=== PATIENT | female | born 1965 | race Caucasian/White ===

== ENCOUNTER 2017-05-15 11:19 | Emergency (ER) | payer SELFPAY, BC | END 2017-05-15 22:20 | disposition left against medical advice (07) | LOC: E/R 11:19 | DX: Z53.21 Procedure and treatment not carried out due to patient leaving prior to being seen by health care provider (principal) | CPT/HCPCS: 93005 ==

== ENCOUNTER 2017-09-28 12:49 | Emergency (ER) | payer SELFPAY ==
[2017-09-28] MEDS: SOD CHLORIDE 0.9% 2,100 ML IV (14:08)
[2017-09-28] MEDS: ONDANSETRON 4 MG INJ IV (14:09)
[2017-09-28] MEDS: KETOROLAC 15 MG INJ IV (14:10)
[2017-09-28 14:12] LABS: ADD UMIC YES; UR ASCORBIC ACID NEGATIVE (NEGATIVE); UR BACTERIA MANY /HPF (NONE SEEN); UR BILIRUBIN (Dip) NEGATIVE (NEGATIVE); UR BLOOD (Dip) 2+ mg/dL (NEGATIVE); UR CLARITY TURBID (CLEAR); UR COLOR YELLOW (YELLOW); UR GLUCOSE (Dip) NEGATIVE (NEGATIVE); UR KETONES (Dip) NEGATIVE (NEGATIVE); UR LEUKOCYTE ESTERASE (Dip) 3+ Leu/ul (NEGATIVE); UR MUCUS FEW /HPF (NONE SEEN); UR NITRITE (Dip) NEGATIVE (NEGATIVE); UR NONSQUAMOUS EPITHELIAL CELL 2 /HPF (NONE SEEN); UR RBC 143 /HPF (0-5); UR SPECIFIC GRAVITY (Dip) 1.014 (1.003-1.030); UR TOTAL PROTEIN (Dip) 2+ mg/dl (NEGATIVE); UR UROBILINOGEN (Dip) NEGATIVE (NEGATIVE); UR WBC > 182 /HPF (0-5)
[2017-09-28 14:17] LABS: ADD MAN DIFF? NO
[2017-09-28 14:18] LABS: BASOPHILS % 0.2 % (0.0-2.0); HEMATOCRIT 38.8 % (37.0-47.0); HEMOGLOBIN 13.2 g/dl (12.0-16.0); LYMPHOCYTES # 0.9 10^3/ul (0.8-2.9); LYMPHOCYTES % 9.4 % (15.0-51.0); MEAN CORPUSCULAR HEMOGLOBIN 28.1 pg (29.0-33.0); MEAN CORPUSCULAR VOLUME 82.7 fl (82.0-101.0); MEAN PLATELET VOLUME 9.2 fl (7.4-10.4); MONOCYTE # 0.6 10^3/ul (0.3-0.9); MONOCYTES % 6.9 % (0.0-11.0); NEUTROPHIL # 7.5 10^3/ul (1.6-7.5); NEUTROPHILS % 83.2 % (39.0-77.0); PLATELET COUNT 219 10^3/UL (140-415); RED BLOOD COUNT 4.69 10^6/ul (4.20-5.40); RED CELL DISTRIBUTION WIDTH 12.3 % (11.5-14.5)
[2017-09-28 14:35] LABS: ALANINE AMINOTRANSFERASE 23 IU/L (13-69); ALBUMIN 4.4 g/dl (3.3-4.9); ALBUMIN/GLOBULIN RATIO 1.18; ALKALINE PHOSPHATASE 90 IU/L (42-121); ANION GAP 16 (8-16); ASPARTATE AMINO TRANSFERASE 18 IU/L (15-46); BLOOD UREA NITROGEN 9 mg/dl (7-20); CARBON DIOXIDE 28 mmol/L (21-31); CHLORIDE 101 mmol/L (97-110); CREATININE 0.62 mg/dl (0.44-1.00); GLUCOSE 120 mg/dl (70-220); LIPASE 19 U/L (23-300); POTASSIUM 3.7 mmol/L (3.5-5.1); SODIUM 141 mmol/L (135-144); TOTAL PROTEIN 8.1 g/dl (6.1-8.1)
[2017-09-28] MEDS: CEFTRIAXONE 1 GM/50 ML (PMX) 50 ML IVPB (15:46)
[2017-09-28] MEDS: ACETAMINOPHEN 325 MG TAB PO (16:06)
== END 2017-09-28 19:02 | disposition home or self-care (01) ==
LOC: FTE 12:49
DX: N30.00 Acute cystitis without hematuria (principal); R39.9 Unspecified symptoms and signs involving the genitourinary system
CPT/HCPCS: 74176; 80053; 81001; 81025; 83690; 85025; 87040; 96374; 96375; 99285-25

== ENCOUNTER 2017-10-28 08:10 | Inpatient (IN) | payer BC, MEDICAID ==
[2017-10-28] MEDS: ACETAMINOPHEN 325 MG TAB PO ×2 (08:55→14:35)
[2017-10-28] MEDS: SODIUM CHLORIDE 0.9% 1L BAG IV* (08:55)
[2017-10-28] MEDS: CEFEPIME 1GM/50 ML (PMX) 50 ML IVPB (08:55)
[2017-10-28 09:04] LABS: ADD MAN DIFF? NO
[2017-10-28 09:12] LABS: WHITE BLOOD COUNT 6.3 10^3/ul (4.8-10.8)
[2017-10-28 09:12] LABS: BASOPHILS % 0.2 % (0.0-2.0); HEMATOCRIT 35.7 % (37.0-47.0); LYMPHOCYTES # 0.9 10^3/ul (0.8-2.9); LYMPHOCYTES % 13.4 % (15.0-51.0); MEAN CORPUSCULAR HEMOGLOBIN 27.6 pg (29.0-33.0); MEAN CORPUSCULAR HGB CONC 33.6 g/dl (32.0-37.0); MEAN CORPUSCULAR VOLUME 82.1 fl (82.0-101.0); MEAN PLATELET VOLUME 10.1 fl (7.4-10.4); MONOCYTE # 0.5 10^3/ul (0.3-0.9); MONOCYTES % 7.1 % (0.0-11.0); NEUTROPHILS % 79.1 % (39.0-77.0); PLATELET COUNT 142 10^3/UL (140-415); RED BLOOD COUNT 4.35 10^6/ul (4.20-5.40); RED CELL DISTRIBUTION WIDTH 13.1 % (11.5-14.5)
[2017-10-28 09:30] LABS: ADD UMIC YES; ALANINE AMINOTRANSFERASE 30 IU/L (13-69); ALBUMIN 3.9 g/dl (3.3-4.9); ALBUMIN/GLOBULIN RATIO 1.11; ALKALINE PHOSPHATASE 66 IU/L (42-121); ANION GAP 16 (8-16); ASPARTATE AMINO TRANSFERASE 28 IU/L (15-46); BILIRUBIN,INDIRECT 0.5 mg/dl (0-1.1); BILIRUBIN,TOTAL 0.5 mg/dl (0.2-1.3); BLOOD UREA NITROGEN 11 mg/dl (7-20); CALCIUM 8.5 mg/dl (8.4-10.2); CARBON DIOXIDE 24 mmol/L (21-31); CHLORIDE 101 mmol/L (97-110); CREATININE 0.67 mg/dl (0.44-1.00); GLUCOSE 200 mg/dl (70-220); INR 1.05; PARTIAL THROMBOPLASTIN TIME 30.5 Sec (25.0-35.0); POTASSIUM 3.2 mmol/L (3.5-5.1); PROTIME 13.8 Sec (11.9-14.9); PT RATIO 1.1; SODIUM 138 mmol/L (135-144); TOTAL PROTEIN 7.4 g/dl (6.1-8.1); UR ASCORBIC ACID NEGATIVE (NEGATIVE); UR BACTERIA FEW /HPF (NONE SEEN); UR BILIRUBIN (Dip) NEGATIVE (NEGATIVE); UR BLOOD (Dip) 1+ mg/dL (NEGATIVE); UR CLARITY CLEAR (CLEAR); UR COLOR YELLOW (YELLOW); UR GLUCOSE (Dip) NEGATIVE (NEGATIVE); UR KETONES (Dip) NEGATIVE (NEGATIVE); UR LEUKOCYTE ESTERASE (Dip) TRACE Leu/ul (NEGATIVE); UR NITRITE (Dip) NEGATIVE (NEGATIVE); UR RBC 3 /HPF (0-5); UR SPECIFIC GRAVITY (Dip) 1.016 (1.003-1.030); UR TOTAL PROTEIN (Dip) 1+ mg/dl (NEGATIVE); UR UROBILINOGEN (Dip) 1+ mg/dL (NEGATIVE); UR WBC 17 /HPF (0-5)
[2017-10-28 09:36] LABS: LACTIC ACID 2.7 mmol/L (0.5-2.0)
[2017-10-28 09:40] LABS: TROPONIN-I < 0.010 ng/ml (0.000-0.120)
[2017-10-28 11:19] LABS: LACTIC ACID 0.6 mmol/L (0.5-2.0)
[2017-10-28] MEDS ORDERED: BISACODYL 10 MG SUPP PR (14:00)
[2017-10-28] MEDS ORDERED: NACL 0.9% 3 ML SYG IV (14:00)
[2017-10-28] MEDS ORDERED: ONDANSETRON 4 MG INJ IV (14:00)
[2017-10-28] MEDS ORDERED: morphine 2 MG INJ IV (14:00)
[2017-10-28] MEDS ORDERED: DOCUSATE SODIUM 100 MG CAP PO (14:00)
[2017-10-28] MEDS ORDERED: ACETAMINOPHEN 650 MG SUPP PR (14:00)
[2017-10-28] MEDS ORDERED: MAGNESIUM HYDROXIDE 30ML CUP PO (14:00)
[2017-10-28] MEDS ORDERED: HYDROCODONE/APAP (5/325) TAB PO (14:00)
[2017-10-28] MEDS: SOD CHLORIDE 0.9% 1,000 ML IV (14:39)
[2017-10-28] MEDS: HYDROCODONE/APAP (5/325) TAB PO (14:48)
[2017-10-28 14:50] LABS: LACTIC ACID 0.7 mmol/L (0.5-2.0)
[2017-10-28] MEDS: CEFEPIME 2GM/50 ML (PMX) 50 ML IVPB (21:44)
[2017-10-29] MEDS: SOD CHLORIDE 0.9% 1,000 ML IV ×2 (03:54→16:06)
[2017-10-29] MEDS: HYDROCODONE/APAP (5/325) TAB PO ×2 (03:55→12:58)
[2017-10-29] MEDS: ACETAMINOPHEN 325 MG TAB PO ×2 (03:57→16:09)
[2017-10-29] MEDS: PANTOPRAZOLE 40 MG INJ IV (05:41)
[2017-10-29 05:56] LABS: ADD MAN DIFF? NO
[2017-10-29 05:59] LABS: WHITE BLOOD COUNT 5.3 10^3/ul (4.8-10.8)
[2017-10-29 05:59] LABS: BASOPHILS % 0.2 % (0.0-2.0); EOSINOPHILS % 0.4 % (0.0-7.0); HEMATOCRIT 33.6 % (37.0-47.0); HEMOGLOBIN 11.2 g/dl (12.0-16.0); LYMPHOCYTES # 1.2 10^3/ul (0.8-2.9); LYMPHOCYTES % 22.4 % (15.0-51.0); MEAN CORPUSCULAR HEMOGLOBIN 27.9 pg (29.0-33.0); MEAN CORPUSCULAR HGB CONC 33.3 g/dl (32.0-37.0); MEAN CORPUSCULAR VOLUME 83.8 fl (82.0-101.0); MEAN PLATELET VOLUME 9.8 fl (7.4-10.4); MONOCYTE # 0.6 10^3/ul (0.3-0.9); MONOCYTES % 12.2 % (0.0-11.0); NEUTROPHIL # 3.4 10^3/ul (1.6-7.5); NEUTROPHILS % 64.6 % (39.0-77.0); PLATELET COUNT 150 10^3/UL (140-415); RED BLOOD COUNT 4.01 10^6/ul (4.20-5.40); RED CELL DISTRIBUTION WIDTH 12.9 % (11.5-14.5)
[2017-10-29 07:03] LABS: T4 (THYROXINE) 6.5 ug/dl (5.5-11.0)
[2017-10-29 08:30] LABS: ALANINE AMINOTRANSFERASE 28 IU/L (13-69); ALBUMIN 3.4 g/dl (3.3-4.9); ALBUMIN/GLOBULIN RATIO 1.09; ALKALINE PHOSPHATASE 57 IU/L (42-121); ANION GAP 11 (8-16); ASPARTATE AMINO TRANSFERASE 23 IU/L (15-46); BILIRUBIN,INDIRECT 0.3 mg/dl (0-1.1); BILIRUBIN,TOTAL 0.3 mg/dl (0.2-1.3); BLOOD UREA NITROGEN 8 mg/dl (7-20); CALCIUM 8.5 mg/dl (8.4-10.2); CARBON DIOXIDE 29 mmol/L (21-31); CHLORIDE 105 mmol/L (97-110); CHOL/HDL RATIO 3.6 RATIO; CHOLESTEROL 139 mg/dl (100-200); CREATININE 0.58 mg/dl (0.44-1.00); GLUCOSE 103 mg/dl (70-220); HDL CHOLESTEROL 38 mg/dl (37-92); LDL CHOLESTEROL,CALCULATED 80 mg/dl; MAGNESIUM 1.8 mg/dl (1.7-2.5); POTASSIUM 3.6 mmol/L (3.5-5.1); SODIUM 141 mmol/L (135-144); TOTAL PROTEIN 6.5 g/dl (6.1-8.1); TRIGLYCERIDES 105 mg/dl (0-149)
[2017-10-29] MEDS ORDERED: ACET/BUTAL/CAFF TAB PO (09:00)
[2017-10-29] MEDS: CEFEPIME 2GM/50 ML (PMX) 50 ML IVPB ×2 (09:06→20:37)
[2017-10-29 10:36] LABS: FREE THYROXINE INDEX (Calc) 2.06 ug/ml (0.65-3.89); T3 UPTAKE 31.7 % (23.5-40.5)
[2017-10-29 12:23] LABS: HEMOGLOBIN A1C 5.6 % (0-5.9)
[2017-10-30] MEDS: PANTOPRAZOLE 40 MG INJ IV (05:19)
[2017-10-30] MEDS: SOD CHLORIDE 0.9% 1,000 ML IV ×3 (05:19→18:29)
[2017-10-30] MEDS: CEFEPIME 2GM/50 ML (PMX) 50 ML IVPB ×2 (08:54→21:53)
[2017-10-30] MEDS: HYDROCODONE/APAP (5/325) TAB PO (08:54)
[2017-10-30] MEDS ORDERED: morphine LIQ (10 MG/5 ML) CUP PO (16:30)
[2017-10-31] MEDS: SOD CHLORIDE 0.9% 1,000 ML IV ×2 (04:12→07:01)
[2017-10-31] MEDS: PANTOPRAZOLE 40 MG INJ IV (05:52)
[2017-10-31] MEDS: CEFEPIME 2GM/50 ML (PMX) 50 ML IVPB ×2 (08:43→21:29)
[2017-11-01] MEDS: SOD CHLORIDE 0.9% 1,000 ML IV ×2 (02:47→16:09)
[2017-11-01] MEDS: PANTOPRAZOLE 40 MG INJ IV (05:07)
[2017-11-01] MEDS: CEFEPIME 2GM/50 ML (PMX) 50 ML IVPB (08:34)
[2017-11-01] MEDS: CEFTRIAXONE 1 GM/50 ML (PMX) 50 ML IVPB (16:14)
[2017-11-02] MEDS: PANTOPRAZOLE 40 MG INJ IV (05:50)
[2017-11-02] MEDS: SOD CHLORIDE 0.9% 1,000 ML IV ×3 (05:50→21:48)
[2017-11-02] MEDS: CEFTRIAXONE 1 GM/50 ML (PMX) 50 ML IVPB (15:12)
[2017-11-02] MEDS: ACETAMINOPHEN 325 MG TAB PO (21:51)
[2017-11-03] MEDS: PANTOPRAZOLE 40 MG INJ IV (06:05)
[2017-11-03] MEDS: CEFTRIAXONE 1 GM/50 ML (PMX) 50 ML IVPB (15:02)
[2017-11-03] MEDS: SOD CHLORIDE 0.9% 1,000 ML IV (16:46)
[2017-11-04] MEDS: SOD CHLORIDE 0.9% 1,000 ML IV ×3 (04:08→19:27)
[2017-11-04] MEDS: PANTOPRAZOLE 40 MG INJ IV (06:26)
[2017-11-04] MEDS: CEFTRIAXONE 1 GM/50 ML (PMX) 50 ML IVPB (14:16)
[2017-11-05] MEDS: PANTOPRAZOLE 40 MG INJ IV (05:22)
[2017-11-05] MEDS: SOD CHLORIDE 0.9% 1,000 ML IV (06:42)
[2017-11-05] MEDS: CEFTRIAXONE 1 GM/50 ML (PMX) 50 ML IVPB (14:05)
== END 2017-11-05 18:33 | disposition home health service (06) | DRG 872 ==
LOC: E/R 08:10 → PP2 11:07
DX: A41.9 Sepsis, unspecified organism (principal); N10 Acute pyelonephritis; N39.0 Urinary tract infection, site not specified; B96.20 Unspecified Escherichia coli [E. coli] as the cause of diseases classified elsewhere; Z16.35 Resistance to multiple antimicrobial drugs; G43.909 Migraine, unspecified, not intractable, without status migrainosus; E87.6 Hypokalemia; R65.20 Severe sepsis without septic shock; R20.0 Anesthesia of skin
CPT/HCPCS: 36415; 70450; 74176; 80053; 80061; 81001; 83036; 83605; 83735; 84100; 84436; 84443; 84479; 84484; 85025; 85610; 85730; 87040; 87086; 93005; 96374; 99291-25

== ENCOUNTER 2017-11-07 12:57 | Emergency (ER) | payer BC | END 2017-11-07 16:36 | disposition home or self-care (01) | LOC: FTE 12:57 | DX: Z45.2 Encounter for adjustment and management of vascular access device (principal); I10 Essential (primary) hypertension | CPT/HCPCS: 99282 ==